=== PATIENT | male | born 1960 | race African-American/Black ===

== ENCOUNTER 2024-08-11 17:48 | Emergency (ER) | payer MEDICAID ==
[~2024-08-11] VITALS: Ht 182.9 cm; Wt 109.0 kg
[2024-08-11 17:53] VITALS: O2SAT 96
[2024-08-11 18:37] LABS: BASOPHILS % 0.7 % (0.0-2.0); DIFFERENTIAL COMMENT 0; EOSINOPHILS % 2.6 % (0.0-5.0); HEMATOCRIT. 54.9 % (42.0-52.0); HEMOGLOBIN. 17.3 g/dL (14.0-18.0); LYMPHOCYTES % 21.5 % (20.0-50.0); MEAN CORPUSCULAR HGB CONC 31.5 g/dL (31.0-37.0); MEAN CORPUSCULAR VOLUME 85.8 fL (80.0-94.0); MEAN PLATELET VOLUME 8.4 fl (7.4-10.4); MONOCYTES % 12.7 % (2.0-8.0); NEUTROPHILS % 62.5 % (40.0-76.0); PLATELET 197 x1000/uL (130-400); RED CELL DISTRIBUTION WIDTH 15.9 % (11.6-14.6); WHITE BLOOD COUNT 6.2 x1000/uL (4.5-11.0)
[2024-08-11 18:50] LABS: CHLORIDE 100 mEq/L (98-107); POTASSIUM 3.9 mEq/L (3.5-5.1); SODIUM 138 mEq/L (136-145)
[2024-08-11 18:51] LABS: CALCIUM 9.8 mg/dL (8.7-10.4); CARBON DIOXIDE 28 mEq/L (21-32)
[2024-08-11 18:56] LABS: CREATININE 1.1 mg/dL (0.6-1.3); GLUCOSE 122 mg/dL (70-105); UREA NITROGEN BLOOD 14 mg/dL (9-23)
[2024-08-11 18:57] LABS: TROPONIN I HIGH SENSITIVITY 16 ng/L (3.0-53)
[2024-08-11] MEDS ORDERED: METHOCARBAMOL 500MG TABLET PO SCH (19:15)
[2024-08-11] MEDS: IBUPROFEN 600MG TABLET PO ONE (19:18)
[2024-08-11] MEDS: METHOCARBAMOL 500MG TABLET PO ONE (19:19)
[2024-08-11 19:27] LABS: CLARITY URINE CLEAR (CLEAR); GLUCOSE URINE 3+ (NEGATIVE); KETONES URINE NEGATIVE (NEGATIVE); LEUKOCYTE ESTERASE URINE NEGATIVE (NEGATIVE); NITRITE URINE NEGATIVE (NEGATIVE); OCCULT BLOOD URINE NEGATIVE (NEGATIVE); PROTEIN URINE 1+ (NEGATIVE); SPECIFIC GRAVITY URINE 1.014 (1.005-1.030); UROBILINOGEN URINE 0.2 E.U./dL (0.2-1.0)
[2024-08-11 19:31] LABS: PROTHROMBIN TIME 10.8 sec (9.6-11.0)
[2024-08-11 20:14] LABS: COLOR URINE STRAW (YELLOW)
[2024-08-11 20:16] LABS: RBC URINE NONE SEEN /hpf (0-2); SQUAMOUS EPITHELIAL CELL URINE RARE /lpf (RARE/1+); WBC URINE 0-2 /hpf (0-2)
[2024-08-11 20:17] LABS: BACTERIA URINE TRACE; MUCUS URINE TRACE /lpf (NONE/TRACE)
[2024-08-11 20:40] LABS: TROPONIN I HIGH SENSITIVITY 16 ng/L (3.0-53)
[2024-08-11] MEDS: MORPHINE SULFATE 4 MG/ML INJ (FOR IV/IM USE) IV ONE (21:11)
[2024-08-11] MEDS ORDERED: LIDO700A30 TP (21:18)
[2024-08-11] MEDS ORDERED: IBUP-2029 MT (21:18)
[2024-08-11] MEDS ORDERED: METH-653 MT (21:18)
[2024-08-11 22:23] VITALS: BP 124/89; PULSE 97; RESP 25; TEMP 36.6; O2SAT 99
== END 2024-08-11 22:30 | disposition home or self-care (01) ==
LOC: ER 17:48
DX: S20.219A Contusion of unspecified front wall of thorax, initial encounter (principal); I25.2 Old myocardial infarction; I10 Essential (primary) hypertension; E11.9 Type 2 diabetes mellitus without complications; Z88.2 Allergy status to sulfonamides; Z98.890 Other specified postprocedural states; V89.2XXA Person injured in unspecified motor-vehicle accident, traffic, initial encounter; Y93.89 Activity, other specified; Y92.410 Unspecified street and highway as the place of occurrence of the external cause; Y99.8 Other external cause status
CPT/HCPCS: 80048; 81003; 85025; 85610; 84484; 36415; 71045; 71250; 96374; 99285; J2270; Z7610 ×2; A4606